=== PATIENT | female | born 1985 | race Native Hawaiian/Other Pacific Islander ===

== ENCOUNTER 2017-11-07 21:46 | Emergency (ER) | payer OTHER ==
[~2017-11-07] VITALS: Ht 162.6 cm; Wt 97.5 kg
[~2017-11-07 21:46] MED LIST: GILDESS 1/20 PO
[2017-11-07 23:33] LABS: PLATELET COUNT 241 K/uL (152-353)
== END 2017-11-08 00:48 | disposition home or self-care (01) ==
LOC: ED 21:46
DX: J01.90 Acute sinusitis, unspecified (principal)
CPT/HCPCS: 36415; 80053; 85027; 99283